=== PATIENT | female | born 1985 | race Caucasian/White ===

== ENCOUNTER 2017-07-15 13:03 | Emergency (ER) | payer BC ==
[~2017-07-15] VITALS: Ht 149.9 cm; Wt 79.2 kg
[2017-07-15 14:27] LABS: HEMATOCRIT 40.9 % (36.0-46.0); HEMOGLOBIN 14.7 G/DL (11.9-15.5); MCH 33.3 PG (29.0-34.0); MCHC 35.9 G/DL (30.0-36.0); MCV 92.5 FL (83-99); PLATELET COUNT 321 K/uL (156-360); RBC DIS.WIDTH-CV 12.1 % (11.8-14.6); RBC DIS.WIDTH-SD 41.5 % (39-53); RED BLOOD COUNT 4.42 M/uL (3.80-5.20); WHITE BLOOD COUNT 10.2 K/uL (4.1-10.2)
[2017-07-15 14:35] LABS: ALBUMIN 4.2 g/dL (3.2-4.8); CHLORIDE 103 mEq/L (99-109); POTASSIUM 3.6 mEq/L (3.7-5.4); SODIUM 136 mEq/L (136-147)
[2017-07-15 14:37] LABS: GLUCOSE 109 mg/dL (70-99); TOTAL PROTEIN 7.1 g/dL (6.4-8.3)
[2017-07-15 14:39] LABS: TOTAL BILIRUBIN 0.6 mg/dL (0.0-1.0)
[2017-07-15 14:40] LABS: ALKALINE PHOSPHATASE 79 IU/L (3-129)
[2017-07-15 14:41] LABS: CREATININE 0.8 mg/dL (0.6-1.3); GFR ESTIMATE (CALCULATED) > 59 mL/min/
[2017-07-15 14:42] LABS: AST (GOT) 30 IU/L (2-34); UREA NITROGEN (BUN) 4 mg/dL (9-23)
[2017-07-15 14:44] LABS: ALT (GPT) 50 IU/L (3-49); LIPASE 10 U/L (1.0-51.0)
[2017-07-15 14:48] LABS: APPEARANCE CLEAR ((CLEAR)); BILIRUBIN NEGATIVE; BLOOD NEGATIVE; COLOR YELLOW ((YELLOW)); GLUCOSE (STRIP) NEGATIVE; KETONES NEGATIVE; LEUKOCYTES MODERATE; NITRITE NEGATIVE; PROTEIN (STRIP) NEGATIVE; SPECIFIC GRAVITY 1.006 (1.000-1.030); UROBILINOGEN 0.2 MG/DL (0.2-1.0)
[2017-07-15 14:56] LABS: BACTERIA RARE /HPF; EPITHELIAL CELLS RARE /HPF; MUCUS TRACE /LPF; RED BLOOD CELLS 0-5 /HPF (0-5); UCUL ADDED? NO; WHITE BLOOD CELLS 0-5 /HPF (0-5)
[2017-07-15 15:53] VITALS: BP 130/89
== END 2017-07-15 16:13 | disposition home or self-care (01) ==
LOC: EME 13:03 → RME 13:03
PROVIDERS: Nurse Practitioner Family
DX: O26.891 Other specified pregnancy related conditions, first trimester (principal); R10.13 Epigastric pain; O99.611 Diseases of the digestive system complicating pregnancy, first trimester; K21.9 Gastro-esophageal reflux disease without esophagitis; Z90.49 Acquired absence of other specified parts of digestive tract; Z3A.00 Weeks of gestation of pregnancy not specified; O10.911 Unspecified pre-existing hypertension complicating pregnancy, first trimester; Z87.891 Personal history of nicotine dependence; Z88.8 Allergy status to other drugs, medicaments and biological substances
CPT/HCPCS: 76705; 80053; 81003; 81025; 83690; 85027; 99281; 99285